=== PATIENT | female | born 1975 | race Caucasian/White ===

== ENCOUNTER 2017-01-16 07:33 | Emergency (ER) | payer BC, MEDICAID ==
[~2017-01-16 07:33] MED LIST: EFFEXOR XR150 M1 PO; HYDROCHLOROTH12.5 M2 PO; IBUPROFEN600 M1 PO; MOTRIN IB200 M1 PO; NORCO 5-325 TA1 EACH PO; PREDNISONE20 M1 PO; PRILOSEC20 M1 PO; PROAIR RESPICL90 MCG INH; PROVENTIL HFA6.7 G1 IH; ZOFRAN4 M2 PO
[2017-01-16] MEDS ORDERED: NORCO 5-325 TA1 EACH PO (09:34)
== END 2017-01-16 09:54 ==
LOC: EDMED 07:33
PROC: 0HQ1XZZ Repair Face Skin, External Approach (ICD-10-PCS; principal; 2017-01-16)
DX: S02.32XB Fracture of orbital floor, left side, initial encounter for open fracture (principal); F17.200 Nicotine dependence, unspecified, uncomplicated; W00.0XXA Fall on same level due to ice and snow, initial encounter; Y92.89 Other specified places as the place of occurrence of the external cause

== ENCOUNTER 2017-01-20 11:45 | Emergency (ER) | payer BC, MEDICAID, SELFPAY ==
[2017-01-20] MEDS ORDERED: [UNRECOGNIZED DRUG - REMARK] (13:38)
[2017-01-20] MEDS ORDERED: NORCO 5-325 TA1 EACH PO (14:03)
== END 2017-01-20 14:09 ==
LOC: EDMED 11:45
DX: Z76.0 Encounter for issue of repeat prescription (principal); I10 Essential (primary) hypertension; J45.909 Unspecified asthma, uncomplicated

== ENCOUNTER 2017-04-10 14:09 | Emergency (ER) | payer SELFPAY ==
[~2017-04-10 14:09] MED LIST changes: +[UNRECOGNIZED DRUG - REMARK]
[2017-04-10] MEDS ORDERED: CYCLOBENZAPRINE5 M1 PO (14:44)
== END 2017-04-10 15:25 ==
LOC: EDMED 14:09
DX: S16.1XXA Strain of muscle, fascia and tendon at neck level, initial encounter (principal); M43.6 Torticollis; I10 Essential (primary) hypertension; J45.909 Unspecified asthma, uncomplicated; X58.XXXA Exposure to other specified factors, initial encounter
CPT/HCPCS: J1885; J2360